=== PATIENT | male | born 1960 | race Caucasian/White ===

== ENCOUNTER 2021-02-02 20:35 | Emergency (ER) | payer MEDICARE ==
[2021-02-03 01:38] LABS: BUN/CREATININE RATIO 15 (0-10)
[2021-02-03 01:38] LABS: HEMOGLOBIN 12.7 gm/dl (14.0-17.5); RED BLOOD COUNT 4.25 M/UL (4.20-5.50); WHITE BLOOD COUNT 9.8 K/UL (4.5-11.0)
== END 2021-02-03 03:25 | disposition short-term general hospital (02) ==
LOC: ER1 20:35 → EDBD 20:35 → ER1 02-03 03:25
PROVIDERS: Family Medicine
DX: K85.90 Acute pancreatitis without necrosis or infection, unspecified (principal); E11.65 Type 2 diabetes mellitus with hyperglycemia; K83.8 Other specified diseases of biliary tract; R94.5 Abnormal results of liver function studies
CPT/HCPCS: 80053; 80076; 81001; 82150; 83690; 85025; 85610; 93005; 96374; 96375; 99285; J2270; J2405